=== PATIENT | male | born 1950 | race Caucasian/White ===

== ENCOUNTER 2024-05-25 10:57 | Emergency (ER) | payer OTHER ==
[2024-05-25] MEDS ORDERED: MORPHINE 4 MG/ML SYR ONE (12:45)
[2024-05-25] MEDS ORDERED: ONDANSETRON 4 MG/2 ML VIAL ONE (12:45)
[2024-05-25] MEDS ORDERED: DIPHENHYDRAMINE 50 MG/ML VIAL ONE (13:10)
[2024-05-25] MEDS ORDERED: METHYLPREDNISOLONE 40 MG INJ ONE (13:11)
--- NOTE | 2024-05-25 13:14 | RAD REPORT ---
EXAM DESCRIPTION: CT - CTHCSPWOC - 05/25/2024 12:58 pm CLINICAL HISTORY: TRAUMA COMPARISON: Thoracic Spine W/o Cont dated 05/25/2024 TECHNIQUE: Axial thin cut noncontrast CT images of the head were obtained. Axial thin cut noncontrast CT images of the cervical spine were obtained. Multiplanar reformatted images were generated and reviewed. All CT scans are performed using dose optimization technique as appropriate and may include automated exposure control or mA/KV adjustment according to patient size. FINDINGS: CT HEAD WITHOUT CONTRAST: No acute hemorrhage, hydrocephalus or extra-axial collection is identified.No areas of brain edema or midline shift. The paranasal sinuses and mastoids are clear.The calvarium is intact. CT CERVICAL SPINE WITHOUT CONTRAST: No fracture or subluxation.No prevertebral soft tissues swelling is identified. Up to moderate neural foraminal narrowing at C3-4, C4-5, and C5-6, secondary to uncovertebral joint and facet spurring. IMPRESSION: No acute traumatic intracranial or cervical spine findings. Degenerative cervical spine changes.
--- NOTE | 2024-05-25 13:21 | RAD REPORT ---
EXAM DESCRIPTION: CT - Thoracic Spine W/o Cont - 05/25/2024 12:59 pm CLINICAL HISTORY: PAIN COMPARISON: No comparisons TECHNIQUE: Axial noncontrast CT imaging of the thoracic spine was performed with coronal and sagitta l re-formatted images. All CT scans are performed using dose optimization technique as appropriate and may include automated exposure control or mA/KV adjustment according to patient size. FINDINGS: No acute thoracic spine fracture seen. No aggressive marrow pattern or malalignment. Paraspinal tissues are normal in thickness. No paraspinal abscess or hematoma seen. Intervertebral disc disease assessment is inherently limited by CT. Within these limitations, no high -grade canal or foraminal stenosis suspected. Sequelae of median sternotomy with mitral valve prosthesis present. The included lungs demonstrate bibasilar interstitial prominence, and small layering left pleural eff usion. Scattered small pulmonary nodules, largest measuring 5 mm in the anterior right upper lobe. IMPRESSION: No acute thoracic spine abnormality. Bibasilar interstitial prominence,, could reflect interstitial pneumonitis or mild edema. Small left layering pleural effusion. Consider MRI follow-up for assessment of disc disease if clinically desired.
--- NOTE | 2024-05-25 13:29 | RAD REPORT ---
EXAM DESCRIPTION: CT - Spine Lumbar Wo Con - 05/25/2024 12:58 pm CLINICAL HISTORY: PAIN COMPARISON: No comparisons TECHNIQUE: Axial noncontrast CT imaging of the lumbar spine was performed with coronal and sagittal re-formatted images. All CT scans are performed using dose optimization technique as appropriate and may include automated exposure control or mA/KV adjustment according to patient size. FINDINGS: No acute lumbar spine fracture seen. No aggressive marrow pattern or malalignment. Paraspinal tissues are normal in thickness. No paraspinal abscess or hematoma seen. Intervertebral disc disease assessment is inherently limited by CT. Within these limitations, no high -grade canal stenosis suspected. Multilevel degenerative changes of the facets and endplates, with m ild disc height loss at L5-S1 with areas of annular mineralization. Circumferential disc bulge at L4- 5 as well. Findings contribute to mild to moderate degrees of neural foraminal narrowing at the lower lumbar levels, most pronounced at L5-S1 bilaterally. IMPRESSION: No acute osseus abnormality of the lumbar spine. Degenerative changes as above.
--- NOTE | 2024-05-25 14:04 | EDPHYS ---
Physician Documentation [facility] Name: Edward Odom Age: 74 yrs Sex: Male : 1950 Arrival Date: 05/25/2024 Time: 10:57 Bed 17 Private MD: ED Physician Marisol Peace HPI: 05/25 14:04 This 74 yrs old Male presents to ER via Ambulatory with complaints of Fall gb1 Injury, Head Injury-Adult, Eye Pain. 14:04 Patient was in a car dealership shopping and he fell and tripped over a rug. He fell gb1 forward and hit his right side of his forehead. He has back pain up and down his spine. He denies any LOC as the consciousness and is not on any blood thinning medications. He walked home and sat at home for an hour prior to coming emergency department and then walked into the emergency department to be seen. He walk without assistance. He was accompanied by his family here.. Historical: - Allergies: 11:25 No Known Allergies; tm6 - PMHx: 11:25 Vertigo; Gastric reflux; tm6 - PSHx: 11:25 cataract surgery; aortic valve replacement; tm6 - Immunization history:: Client reports having NOT received the Covid vaccine. - Infectious Disease History:: Denies. - Immunization history: Last tetanus immunization: unknown. - Social history:: Smoking status: Patient denies any tobacco usage or history of. Patient/guardian denies using alcohol. Exam: 14:04 Constitutional: This is a well developed, well nourished patient who is awake, alert, gb1 and in no acute distress. Head/Face: Normocephalic, atraumatic. Neck: Trachea midline, no thyromegaly or masses palpated, and no cervical lymphadenopathy. Supple, full range of motion without nuchal rigidity, or vertebral point tenderness. No Meningismus. Chest/axilla: Normal chest wall appearance and motion. Nontender with no deformity. No lesions are appreciated. Cardiovascular: Regular rate and rhythm with a normal S1 and S2. No gallops, murmurs, or rubs. Normal PMI, no JVD. No pulse deficits. Respiratory: Lungs have equal breath sounds bilaterally, clear to auscultation and percussion. No rales, rhonchi or wheezes noted. No increased work of breathing, no retractions or nasal flaring. Abdomen/GI: Soft, non-tender, with normal bowel sounds. No distension or tympany. No guarding or rebound. No evidence of tenderness throughout. Back: Patient has paraspinal muscle tenderness up and down the cervical thoracic and lumbar region. No midline tenderness and no step-offs on exam. No signs of radiculopathy.. No costovertebral tenderness. Full range of motion. Skin: Warm, dry with normal turgor. Normal color with no rashes, no lesions, and no evidence of cellulitis. MS/ Extremity: Pulses equal, no cyanosis. Neurovascular intact. Full, normal range of motion. Vital Signs: 11:15 BP 142 / 69; Pulse 43; Resp 16; Pulse Ox 100% on R/A; db 11:23 BP 153 / 118; Pulse 53; Resp 20; Temp 97.8(O); Pulse Ox 100% on R/A; Weight 87.09 kg; tm6 Height 5 ft. 11 in. ; Pain 10/10; 14:00 BP 134 / 62; Pulse 46; Resp 18; Pulse Ox 100% ; db 11:23 Body Mass Index 26.78 (87.09 kg, 180.34 cm) tm6 11:23 Pain Scale: Adult tm6 [place] Coma Score: 13:40 Eye Response: spontaneous(4). Motor Response: obeys commands(6). Verbal Response: db oriented(5). Total: 15. Trauma Score (Adult): 13:40 Eye Response: spontaneous(1); Verbal Response: oriented(1); Motor Response: obeys db commands(2); Systolic BP: > 89 mm Hg(4); Respiratory Rate: 10 to 29 per min(4); [place] Score: 15; Trauma Score: 12 MDM: 11:17 Patient medically screened. gb1 14:04 Data reviewed: vital signs, nurses notes. ED course: 74-year-old male status post gb1 ground-level fall here with the mild forehead on the right side contusion. CTs of the head C-spine, thoracic and lumbar spine are all normal. No signs of compression fracture or rib fracture. Recommend NSAIDs for pain control and routine outpatient follow-up with the patient's primary care doctor.. 05/25 12:41 Order name: CT Head C Spine; Complete Time: 14:02 1 05/25 12:41 Order name: CT Lumbar Spine Wo Con; Complete Time: 14:02 gb1 05/25 12:41 Order name: CT Thoracic Spine Wo Cont; Complete Time: 14:02 [facility] Administered Medications: 12:51 Drug: morphine IVP or IV 4 mg IVP once over 4 mins {Note: RASS 0, pain 10/10.} Route: ll1 IVP; Infused Over: 4 mins; Site: right forearm; 13:20 Follow up: Response: No adverse reaction db 12:51 Drug: Ondansetron IVP 4 mg IVP once; over 2 minutes Route: IVP; Site: right forearm; ll1 13:20 Follow up: Response: No adverse reaction db Disposition Summary: 05/25/24 14:03 Discharge Ordered Notes: Location: Home gb1 Problem: new gb1 Symptoms: have improved gb1 Condition: Stable gb1 Diagnosis - Strain of muscle, fascia and tendon of lower back gb1 - Fall due to bumping against object gb1 Followup: gb1 - With: Private Physician - When: - Reason: Recheck today's complaints Discharge Instructions: - Discharge Summary Sheet gb1 - Lumbosacral Strain gb1 Forms: - Medication Reconciliation Form gb1 - Antibiotic Education gb1 - Prescription Opioid Use gb1 - Patient Portal Instructions gb1 - Leadership Thank You Letter gb1 Signatures: Dispatcher [employer] EDSue Abebe RN RN ll1 Rupal Gallagher RN RN db Marisol Peace MD MD gb1 Victorino Landers RN RN tm6 Corrections: (The following items were deleted from the chart) 12:42 12:42 Head C Spine MPR Wo Con+CT.RAD.BRZ ordered. EDMS EDMS 12:42 12:42 Spine Lumbar Wo Con+CT.RAD.BRZ ordered. EDMS EDMS 12:42 12:42 Thoracic Spine WO Cont+CT.RAD.BRZ ordered. EDMS EDMS 12:58 12:42 Head Brain Wo Cont+CT.RAD.BRZ ordered. EDMS EDMS
--- NOTE | 2024-05-25 14:04 | ER ---
Nurse's Notes [facility] Name: Edward Odom Age: 74 yrs Sex: Male : 1950 Arrival Date: 05/25/2024 Time: 10:57 Bed 17 Private MD: Diagnosis: Strain of muscle, fascia and tendon of lower back;Fall due to bumping against object Presentation: 05/25 11:23 Chief complaint: Patient states: tripped over a rug, body hit the concrete and head hit tm6 a door. Having pain on right forehead through right eye and neck, as well as left shoulder pain to lower back. Coronavirus screen: Vaccine status: Patient reports being unvaccinated. Ebola Screen: Patient negative for fever greater than or equal to 101.5 degrees Fahrenheit, and additional compatible Ebola Virus Disease symptoms Patient denies exposure to infectious person. Patient denies travel to an Ebola-affected area in the 21 days before illness onset. No symptoms or risks identified at this time. Initial Sepsis Screen: Does the patient meet any 2 criteria? No. Patient's initial sepsis screen is negative. Does the patient have a suspected source of infection? No. Patient's initial sepsis screen is negative. Risk Assessment: Do you want to hurt yourself or someone else? Patient reports no desire to harm self or others. Onset of symptoms was May 25, 2024. 11:23 Method Of Arrival: Ambulatory tm6 11:23 Acuity: TANI 3 tm6 13:40 Care prior to arrival: None. Mechanism of Injury: Fall from standing position. Trauma db event details: Injury occurred in the [facility]. Triage Assessment: 11:25 General: Appears distressed, uncomfortable, Behavior is cooperative. Pain: Complains of tm6 pain in forehead, right eye, right cheek, back, posterior aspect of right shoulder and neck Pain currently is 10 out of 10 on a pain scale. EENT: Reports pain in right eye. Neuro: Level of Consciousness is awake, alert, obeys commands, Oriented to person, place, time, situation. Cardiovascular: Patient's skin is warm and dry. Respiratory: Airway is patent Respiratory effort is even, Respiratory pattern is regular. GI: No signs and/or symptoms were reported involving the gastrointestinal system. Abdomen is flat, non-distended. : No signs and/or symptoms were reported regarding the genitourinary system. Derm: Wound noted forehead Wound is abrasion to forehead. Musculoskeletal: Reports pain in face, back and posterior aspect of right shoulder. Trauma Activation: Not Applicable Physician: ED Physician; Name: ; Notified At: ; Arrived At: Physician: General Surgeon; Name: ; Notified At: ; Arrived At: Physician: Radiology; Name: ; Notified At: ; Arrived At: Physician: Respiratory; Name: ; Notified At: ; Arrived At: Physician: Lab; Name: ; Notified At: ; Arrived At: Historical: - Allergies: 11:25 No Known Allergies; tm6 - PMHx: 11:25 Vertigo; Gastric reflux; tm6 - PSHx: 11:25 cataract surgery; aortic valve replacement; tm6 - Immunization history:: Client reports having NOT received the Covid vaccine. - Infectious Disease History:: Denies. - Immunization history: Last tetanus immunization: unknown. - Social history:: Smoking status: Patient denies any tobacco usage or history of. Patient/guardian denies using alcohol. Screenin:56 [facility] ED Fall Risk Assessment (Adult) History of falling in the last 3 months, db including since admission Yes- single mechanical fall (1 pt) Confusion or Disorientation No (0 pts) Intoxicated or Sedated No (0 pts) Impaired Gait No (0 pts) Mobility Assist Device Used No (0 pt) Altered Elimination No (0 pt) Score/Fall Risk Level 0 - 2 = Low Risk Oriented to surroundings, Maintained a safe environment. Abuse screen: Denies threats or abuse. Denies injuries from another. Nutritional screening: No deficits noted. Tuberculosis screening: No symptoms or risk factors identified. Primary Survey: 13:39 NO uncontrolled hemorrhage observed. A: The client is awake and alert. The airway is db patent. The client is alert. Airway: patent. Breathing/Chest: Spontaneous respiratory effort, equal unlabored respirations, breath sounds clear bilaterally, regular pattern, symmetrical chest rise and fall. Respiratory effort: spontaneous, unlabored. Circulation: No external hemorrhage present. Regular and strong central pulse, skin warm/dry/normal color. Disability Client is alert. Exposure/Environment: All clothing and personal items were removed. Forensic evidence collection is not deemed to be indicated at this time. Items placed in patient belonging bag. Reassessment Alertness and Airway: Awake and alert. The airway is patent. Breathing: Spontaneous respiratory effort, equal unlabored respirations, breath sounds clear bilaterally, regular pattern with symmetrical chest rise and fall. Circulation: No external hemorrhage noted. Regular and strong central pulse, skin warm/dry/normal color. Disability: Alert. Assessment: 11:43 Reassessment: Patient appears in no apparent distress at this time. Patient and/or db family updated on plan of care and expected duration. Pain level reassessed. Patient is alert, oriented x 3, equal unlabored respirations, skin warm/dry/pink. General: Appears in no apparent distress. comfortable, Behavior is calm, cooperative. Neuro: Level of Consciousness is awake, alert, obeys commands, Oriented to person, place, time, situation. Respiratory: Airway is patent Respiratory effort is even, unlabored, Respiratory pattern is regular, symmetrical. 13:16 Reassessment: PT REPORTED WHEN LYING FLAT HAD DIFFICULTY SWALLOWING. FAMILY GIVING PT db WATER. WHEN SAT PATIENT UP. PATIENT HAS NO DIFFICULTY SWALLOWING AND HAS CLEAR VOICE. NOTIFIED. DR. PEACE. PT REPOSITIONED SITTING UP. 13:39 Reassessment: Patient appears in no apparent distress at this time. Patient and/or db family updated on plan of care and expected duration. Pain level reassessed. Patient is alert, oriented x 3, equal unlabored respirations, skin warm/dry/pink. Patient states feeling better. 14:28 Reassessment: Patient appears in no apparent distress at this time. Patient and/or db family updated on plan of care and expected duration. Pain level reassessed. Patient is alert, oriented x 3, equal unlabored respirations, skin warm/dry/pink. Patient states feeling better. Patient states symptoms have improved. Vital Signs: 11:15 BP 142 / 69; Pulse 43; Resp 16; Pulse Ox 100% on R/A; db 11:23 BP 153 / 118; Pulse 53; Resp 20; Temp 97.8(O); Pulse Ox 100% on R/A; Weight 87.09 kg; tm6 Height 5 ft. 11 in. ; Pain 10/10; 14:00 BP 134 / 62; Pulse 46; Resp 18; Pulse Ox 100% ; db 11:23 Body Mass Index 26.78 (87.09 kg, 180.34 cm) tm 11:23 Pain Scale: Adult tm6 [place] Coma Score: 13:40 Eye Response: spontaneous(4). Motor Response: obeys commands(6). Verbal Response: db oriented(5). Total: 15. Trauma Score (Adult): 13:40 Eye Response: spontaneous(1); Verbal Response: oriented(1); Motor Response: obeys db commands(2); Systolic BP: > 89 mm Hg(4); Respiratory Rate: 10 to 29 per min(4); [place] Score: 15; Trauma Score: 12 ED Course: 10:59 Patient arrived in ED. mr 11:16 Stone Sloan, RN is Primary Nurse. rs5 11:17 Marisol Peace MD is Attending Physician. gb1 11:25 Triage completed. tm6 11:25 Arm band placed on right wrist. tm6 12:49 Inserted saline lock: 20 gauge in right forearm, using aseptic technique. Flushed with zm 10 mL NS. 13:00 CT Head C Spine In Process Unspecified. EDMS 13:00 CT Lumbar Spine Wo Con In Process Unspecified. EDMS 13:00 CT Thoracic Spine Wo Cont In Process Unspecified. EDMS 13:40 Patient has correct armband on for positive identification. Bed in low position. Call db light in reach. Side rails up X2. Pulse ox on. NIBP on. 13:40 Family accompanied patient. db 14:28 Provided Education on: DISCHARGE. db 14:28 No provider procedures requiring assistance completed. IV discontinued, intact, db bleeding controlled, No redness/swelling at site. Administered Medications: 12:51 Drug: morphine IVP or IV 4 mg IVP once over 4 mins {Note: RASS 0, pain 10/10.} Route: ll1 IVP; Infused Over: 4 mins; Site: right forearm; 13:20 Follow up: Response: No adverse reaction db 12:51 Drug: Ondansetron IVP 4 mg IVP once; over 2 minutes Route: IVP; Site: right forearm; ll1 13:20 Follow up: Response: No adverse reaction db Medication: 14:28 VIS not applicable for this client. db Intake: 14:00 PO: 0ml; Total: 0ml. db Outcome: 14:03 Discharge ordered by . gb1 14:28 Discharged to home via wheelchair, with family, db 14:28 Condition: stable 14:28 Discharge instructions given to patient, family, Instructed on discharge instructions, follow up and referral plans. 14:29 Patient's length of stay was not longer than 2 hours. 14:29 Patient left the ED. ll1 Signatures: Dispatcher [employer] EDNV BuckCaprice, Del Reg mr ClintonSue, RN RN ll1 Rosalba Cyr Danielle RN RN db Stone Sloan RN RN rs5 Marisol Peace MD MD gb1 Victorino Landers RN RN tm6
[2024-05-25 14:34] VITALS: O2SAT 100
[2024-05-25 14:36] VITALS: TEMP 97.8
[2024-05-25 14:37] VITALS: BP 134/62
--- OUTSIDE RECORDS SUMMARY | 2024-05-26 13:54 | XMS REPORT | Continuity of Care Document ---
Author Name Unknown Address [address] [place] [address] [facility] Address [address] [place] [address] Care Team Providers Care Professor Of Medicine Name Role Phone [facility] Primary Car e Physician OSMEL LUNA Attending Clinician UnavailOsmel Luque MD Attending Clinician [phone] JAVED OSBORN Attending Clinician UnavailJaved Owens MD Attending Clinician [phone] Gunjan Sanchez MD Attending Clinician [phone] GUNJAN SANCHEZ Attending Clinician Unavailable Alexandrea Conte RN Attending Clinician Unavailable Ariela Mcleod Attending Clinician [phone] Ariela MOJICA Attending Clinician Unavailable OSMEL LUNA Admitting Clinician UnavailOsmel Luque MD Admitting Clinician [phone] GUNJAN SANCHEZ Admitting Clinician Unavailable Gunjan Sanchez MD Admitting Clinician [phone] Payers Payer Name Policy Type Policy Number Effective Date Expirati on Date Source MEDICARE PART A \T\ [id number] 2016 00:00:00 [employer] S[employer]IOR [employer]PP[employer]MENT [id number] 2020 00:00:00 Problems Condition Name Condition Details Condition Category Status Onset Date Resolution Date Last Treatment Date Treating Clinician Comments Source Nondisplac ed fracture of second metatarsal bone, left foot, initial encounter for open fracture Nondisplac ed fracture of second metatarsal bone, left foot, initial encounter for open fracture Disease Active 20205-30 00:00: 00 [facility] Allergies, Adverse Reactions, Alerts Allergy Name Allergy Type Status Severity Reaction(s) Onset Date Inactive Date Treating Clinician Comments Source LISINOPR [place] DRUG INGREDI Active COUGH 02-15 00:00: 00 [facility] Lisinopr il Propensi ty to adverse reaction s Active Cough 02-15 00:00: 00 [facility] NO KNOWN ALLERGIE S Drug Class Active [facility] Social History Social Habit Start Date Stop Date Quantity Comments Source [facility] Tobacco use and exposure 2024-04-01 00:00:00 2024-04-01 00:00:00 Smokeless tobacco non-user [facility] Exposure to SARS-CoV-2 (event) 2022-06-17 00:00:00 2022-06-27 12:14:00 Not sure [facility] History of Social function 2022-06-14 00:00:00 2022-06-14 00:00:00 [facility] Sex assigned at 1950 00:00:00 1950 00:00:00 [facility] Smoking Status Start Date Stop Date Source Never smoked tobacco [facility] Tobacco smoking consumption unknown [facility] Medications Ordered Medication Name Filled Medication Name Start Date Stop Date Current Medication? Ordering Clinician Indication Dosage Frequency Signature (SIG) Comments Components Source sodium chloride (NS) injection 05-06 17:14: 00 05-06 17:24 :27 No PRN, Starting on Sat05/06/24 at 1214, Until Sat05/06/24 at 1224, Routine, Intra-op [facility] neomycin-po lymyxin-dex amethasone (MAXITROL) 3.5 mg/g-10,000 unit/g-0.1 % ophthalmic ointment 05-06 17:14: 00 05-06 17:24 :27 No PRN, Starting on Sat05/06/24 at 1214, Until Sat05/06/24 at 1224, Routine, Intra-op [facility] dexamethaso ne (DECADRON PHOSPHATE) injection 05-06 17:14: 00 05-06 17:24 :27 No PRN, Starting on Sat05/06/24 at 1214, Until Sat05/06/24 at 1224, Routine, Intra-op [facility] ceFAZolin (ANCEF) injection 05-06 17:14: 00 05-06 17:24 :27 No PRN, Starting on Sat05/06/24 at 1214, Until Sat05/06/24 at 1224, BLESSING, Intra-op [facility] carbachoL (MIOSTAT) 0.01 % intraocular injection 05-06 17:13: 00 05-06 17:24 :27 No PRN, Starting on Sat05/06/24 at 1213, Until Sat05/06/24 at 1224, Routine, Intra-op [facility] chondroitin sulf-sod hyaluronate (DUOVISC VISCO ELASTIC) intraocular injection 05-06 17:04: 00 05-06 17:24 :27 No PRN, Starting on Sat05/06/24 at 1204, Until Sat05/06/24 at 1224, Routine, Intra-op [facility] EPINEPHrine (PF) 1:1,000 (1 mg/mL) (ADRENALIN (PF)) 0.5 mL in balanced salt soln no.1 irrig. (BSS PLUS) 500 mL OR irrigation 05-06 17:03: 00 05-06 17:24 :27 No PRN, Starting on Sat05/06/24 at 1203, Intra-op [facility] water for irrigation irrigation solution 05-06 16:56: 00 05-06 17:24 :27 No PRN, Starting on Sat05/06/24 at 1156, Until Sat05/06/24 at 1224, Routine, Intra-op [facility] Hyaluronida se, Human Recomb. (HYLENEX) injection 05-06 16:52: 00 05-06 17:24 :27 No PRN, Starting on Sat05/06/24 at 1152, Until Sat05/06/24 at 1224, Routine, Intra-op [facility] eye block syringe 11 mL 05-06 16:52: 00 05-06 17:24 :26 No PRN, Starting on Sat05/06/24 at 1152, Until Sat05/06/24 at 1224, Intra-op [facility] cyclopent 1%-tropic 1%-phenyl 2.5%-ketor 0.5% (MYDRIATIC #5) ophthalmic solution syringe 0.5 mL 05-06 15:45: 00 05-06 15:46 :00 No .5mL 0.5 mL, Left Eye, ONCE, 1 dose, On Sat05/06/24 at 1045, Routine, DSU Pre-op [facility] lactated ringers IV infusion 1,000 mL 05-06 15:45: 00 05-06 15:48 :00 No 1000mL at 42 mL/hr, 1,000 mL, IV Infusion, ONCE, 1 dose, On Sat05/06/24 at 1045, Routine, DSU Pre-op [facility] neomycin-po lymyxin-dex amethasone (MAXITROL) 3.5 mg/g-10,000 unit/g-0.1 % ophthalmic ointment 04-22 17:41: 00 04-22 17:52 :23 No PRN, Starting on Sat04/22/24 at 1241, Until Sat04/22/24 at 1252, Routine, Intra-op [facility] dexamethaso ne (DECADRON PHOSPHATE) injection 04-22 17:41: 00 04-22 17:52 :23 No PRN, Starting on Sat04/22/24 at 1241, Until Sat04/22/24 at 1252, Routine, Intra-op [facility] ceFAZolin (ANCEF) injection 04-22 17:41: 00 04-22 17:52 :23 No PRN, Starting on Sat04/22/24 at 1241, Until Sat04/22/24 at 1252, BLESSING, Intra-op [facility] carbachoL (MIOSTAT) 0.01 % intraocular injection 04-22 17:40: 00 04-22 17:52 :23 No PRN, Starting on Sat04/22/24 at 1240, Until Sat04/22/24 at 1252, Routine, Intra-op [facility] chondroitin sulf-sod hyaluronate (DUOVISC VISCO ELASTIC) intraocular injection 04-22 17:31: 00 04-22 17:52 :23 No PRN, Starting on Sat04/22/24 at 1231, Until Sat04/22/24 at 1252, Routine, Intra-op [facility] Hyaluronida se, Human Recomb. (HYLENEX) injection 04-22 17:19: 00 04-22 17:52 :23 No PRN, Starting on Sat04/22/24 at 1219, Until Sat04/22/24 at 1252, Routine, Intra-op [facility] eye block syringe 11 mL 04-22 17:18: 00 04-22 17:52 :23 No PRN, Starting on Sat04/22/24 at 1218, Until Sat04/22/24 at 1252, Intra-op [facility] EPINEPHrine 1:1,000 (1 mg/mL) (ADRENALIN) injection 04-22 17:18: 00 04-22 17:52 :23 No PRN, Starting on Sat04/22/24 at 1218, Until Sat04/22/24 at 1252, Routine, Intra-op [facility] balanced salt irrig soln comb1 (BSS PLUS) ophthalmic solution 500 mL bag 04-22 17:17: 00 04-22 17:52 :23 No PRN, Starting on Sat04/22/24 at 1217, Until Sat04/22/24 at 1252, Routine, Intra-op [facility] water for irrigation irrigation solution 04-22 17:17: 00 04-22 17:52 :23 No PRN, Starting on Sat04/22/24 at 1217, Until Sat04/22/24 at 1252, Routine, Intra-op [facility] sodium chloride (NS) injection 04-22 17:17: 00 04-22 17:52 :23 No PRN, Starting on Sat04/22/24 at 1217, Until Sat04/22/24 at 1252, Routine, Intra-op [facility] cyclopent 1%-tropic 1%-phenyl 2.5%-ketor 0.5% (MYDRIATIC #5) ophthalmic solution syringe 0.5 mL 04-22 15:45: 00 04-22 15:48 :00 No .5mL 0.5 mL, Right Eye, ONCE, 1 dose, On Sat04/22/24 at 1045, Routine, DSU Pre-op [facility] lactated ringers IV infusion 1,000 mL 04-22 15:45: 00 04-22 15:48 :00 No 1000mL at 42 mL/hr, 1,000 mL, IV Infusion, ONCE, 1 dose, On Sat04/22/24 at 1045, Routine, DSU Pre-op [facility] aspirin 81 mg EC tablet 04-22 13:44: 17 Yes 81mg Take 1 tablet by mouth in the morning. [facility] omeprazole 40 mg capsule 04-22 13:44: 17 Yes 40mg Take 1 capsule by mouth in the morning and 1 capsule in the evening. [facility] clindamycin 150 mg capsule 08 00:00: 00 Yes Take 2 capsule by mouth 4 (four) times daily for 10 days. [facility] gabapentin 300 mg capsule 05-31 00:00: 00 Yes [id number] 300mg Take 1 capsule by mouth in the morning and 1 capsule at noon and 1 capsule in the evening. [facility] HYDROcodone -acetaminop hen 5-325 mg tablet 05-31 00:00: 00 Yes [id number] 1{tbl} Take 1 tablet by mouth every 6 (six) hours as needed for Pain (scale 7-10). Indication s: acute pain [facility] traMADoL 50 mg tablet 05-31 00:00: 00 Yes [id number] 50mg Take 1 tablet by mouth every 6 (six) hours as needed for Pain (scale 4-6). Indication s: acute pain [facility] clindamycin 150 mg capsule 05-31 00:00: 00 Yes [id number] 300mg Take 2 capsules by mouth 4 (four) times daily. [facility] Immunizations Ordered Immunization Name Filled Immunization Name Date Status Comments Source Td 2022-05-30 00:00:00 Completed [facility] Td 2022-05-30 00:00:00 Completed [facility] Td 2022-05-30 00:00:00 Completed [facility] Td 2022-05-30 00:00:00 Completed [facility] Td 2022-05-30 00:00:00 Completed [facility] Td 2022-05-30 00:00:00 Completed [facility] TD, NOS Unknown Completed [facility] TD, NOS Unknown Completed [facility] TD, NOS Unknown Completed [facility] TD, NOS Unknown Completed [facility] Vital Signs Vital Name Observation Time Observation Value Comments S ource Systolic blood pressure 2024-05-06 15:43:00 145 mm[Hg] [facility] Diastolic blood pressure 2024-05-06 15:43:00 65 mm[Hg] [facility] Heart rate 2024-05-06 15:43:00 45 /min [facility] Body temperature 2024-05-06 15:43:00 36.44 Kayla [facility] Respiratory rate 2024-05-06 15:43:00 12 /min [facility] Oxygen saturation in Arterial blood by Pulse oximetry 2024-05-06 15:43:00 99 /min [facility] Body weight 2024-04-29 19:00:00 87.091 kg [facility] BMI 2024-04-29 19:00:00 26.78 kg/m2 [facility] Heart rate 2024-05-06 17:40:00 49 /min [facility] Oxygen saturation in Arterial blood by Pulse oximetry 2024-05-06 17:40:00 98 /min [facility] Systolic blood pressure 2024-05-06 17:35:00 129 mm[Hg] [facility] Diastolic blood pressure 2024-05-06 17:35:00 65 mm[Hg] [facility] Respiratory rate 2024-05-06 17:35:00 20 /min [facility] Body temperature 2024-05-06 15:43:00 36.44 Kayla [facility] Body weight 2024-04-29 19:00:00 87.091 kg [facility] BMI 2024-04-29 19:00:00 26.78 kg/m2 [facility] Systolic blood pressure 2024-04-22 18:10:00 130 mm[Hg] [facility] Diastolic blood pressure 2024-04-22 18:10:00 64 mm[Hg] [facility] Heart rate 2024-04-22 18:10:00 45 /min Unive [facility] Respiratory rate 2024-04-22 18:10:00 18 /min [facility] Oxygen saturation in Arterial blood by Pulse oximetry 2024-04-22 18:10:00 95 /min [facility] Body temperature 2024-04-22 17:50:00 36.39 Kayla [facility] Body height 2024-04-22 15:38:00 180.3 cm [facility] Body weight 2024-04-22 15:38:00 86.183 kg [facility] BMI 2024-04-22 15:38:00 26.50 kg/m2 [facility] Systolic blood pressure 2024-04-22 15:46:00 154 mm[Hg] [facility] Diastolic blood pressure 2024-04-22 15:46:00 72 mm[Hg] [facility] Heart rate 2024-04-22 15:46:00 53 /min Unive [facility] Body temperature 2024-04-22 15:46:00 36.33 Kayla [facility] Respiratory rate 2024-04-22 15:46:00 17 /min [facility] Oxygen saturation in Arterial blood by Pulse oximetry 2024-04-22 15:46:00 93 /min [facility] Body height 2024-04-22 15:38:00 180.3 cm [facility] Body weight 2024-04-22 15:38:00 86.183 kg [facility] BMI 2024-04-22 15:38:00 26.50 kg/m2 [facility] Systolic blood pressure 2022-06-27 18:18:00 172 mm[Hg] [facility] Diastolic blood pressure 2022-06-27 18:18:00 54 mm[Hg] [facility] Heart rate 2022-06-27 18:18:00 52 /min [facility] Oxygen saturation in Arterial blood by Pulse oximetry 2022-06-27 18:18:00 100 /min [facility] Body weight 2022-06-27 18:17:00 82.736 kg [facility] BMI 2022-06-27 18:17:00 25.44 kg/m2 [facility] Systolic blood pressure 2022-06-14 14:04:00 175 mm[Hg] [facility] Diastolic blood pressure 2022-06-14 14:04:00 57 mm[Hg] [facility] Heart rate 2022-06-14 14:04:00 67 /min [facility] Oxygen saturation in Arterial blood by Pulse oximetry 2022-06-14 14:04:00 98 /min [facility] Body weight 2022-06-14 13:56:00 81.647 kg [facility] BMI 2022-06-14 13:56:00 25.10 kg/m2 [facility] Procedures Procedure Date / Time Performed Performing Clinicia n Source [address] - [place] XCAPSL CTRC RMVL INSJ IO LENS PROSTH W/O ECP 2024-05-06 16:39:00 Osmel Luna [facility] [address] - [place] XCAPSL CTRC RMVL INSJ IO LENS PROSTH W/O ECP 2024-04-22 17:09:00 Osmel Luna [facility] Encounters Start Date/Time End Date/Time Encounter Type Admission Type Attending [facility] Care Department Encounter ID Source 2024-05-06 10:34:00 2024-05-06 12:50:00 Outpatient R OSMEL LUNA [facility] OPH [id number] [facility] 2024-05-06 11:17:00 2024-05-06 11:50:00 Surgery FitoOsmel [facility] 1.2.840.114 350.1.13.10 4.2.7.2.686 [id number] [facility] 2024-05-06 10:34:00 2024-05-06 10:34:00 Hospital Encounter Osmel Luna [facility] 1.2.840.114 350.1.13.10 4.2.7.2.686 [id number] [facility] 2024-04-22 10:35:00 2024-04-22 13:19:00 Outpatient R OSMEL LUNA [facility] OPH [id number] [facility] 2024-04-22 10:35:00 2024-04-22 13:19:00 Hospital Encounter FitoOsmel [facility] 1.2.840.114 350.1.13.10 4.2.7.2.686 [id number] [facility] 2024-04-22 11:11:00 2024-04-22 11:44:00 Surgery FitoOsmel [facility] 1.2.840.114 350.1.13.10 4.2.7.2.686 [id number] [facility] 2022-06-27 13:19:46 2022-06-27 23:59:00 Outpatient JAVED FERNANDEZ [facility] [id number] [facility] 2022-06-27 13:15:00 2022-06-27 13:41:36 Office Visit Osborn, Javed [facility] 1.2.840.114 350.1.13.10 4.2.7.2.686 [id number] [facility] 2022-06-14 09:00:00 2022-06-14 09:49:38 Outpatient R JAVED OSBORN [facility] [id number] [facility] 2022-06-14 09:00:00 2022-06-14 09:49:38 Office Visit Javed Osborn [facility] 1..840.114 350.1.13.10 4.2.7.2.686 [id number] [facility] 2022-06-12 15:15:00 2022-06-12 15:30:00 Office Visit Gunjan Sanchez [facility] 1..840.114 350.1.13.10 4.2.7.2.686 [id number] [facility] 2022-06-12 15:15:00 2022-06-12 15:15:00 Outpatient R LEATHA GUNJAN [facility] [id number] [facility] 2022-06-12 15:15:00 2022-06-12 15:15:00 Outpatient R LEATHA GUNJAN [facility] [id number] [facility] 2022-06-01 00:00:00 2022-06-01 00:00:00 Transition of Care Alexandrea Conte 1.2.840.114 350.1.13.10 4.2.7.2.686 [id number] [facility] 2022-05-30 22:20:00 2022-05-31 16:30:00 Outpatient X GUNJAN SANCHEZ [facility] [id number] [facility] 2022-05-30 22:20:00 2022-05-31 16:30:00 Emergency SanchezGunjan roberts [facility] 1.2840.114 350.1.13.10 4.2.7.2.686 [id number] [facility] 2022-05-30 17:52:00 2022-05-30 22:18:00 Emergency Ariela Mojica [facility] 1.2.840.114 350.1.13.10 4.2.7.2.686 [id number] [facility] 2022-05-30 17:52:00 2022-05-30 22:18:00 Emergency X Ariela MOJICA [facility] ERT [id number] [facility] 2022-05-30 17:52:00 2022-05-30 22:18:00 Emergency X Ariela MOJICA [facility] ERT [id number] [facility] History and Physical Notes Date/Time Note Provider Source 2024-05-06 11:04:16 H&P Update H&P was reviewed and the patient was examined and there was no change in the patient's condition. [facility] 2024-04-22 11:28:19 H&P Update H&P was reviewed and the patient was examined and there was no change in the patient's condition. [facility] Notes Date/Time Note Provider Source 2024-04-29 14:49:23 Images from the original note were not included. Your procedure is at [facility] on 05/06/24. The address is [address] [place] [id number] [facility] nursing staff will call you the workday before your procedure to let you know what time to arrive.On the day of your procedure, please go inside that door and check in at the desk. Please note: You may not travel home alone and that includes in a taxi or by bus. We must speak to your Responsible Adult (who will be picking you up) the morning of your procedure, before the start of your procedure. This person must be an adult over the age of 18 years of age. Do not eat any solid food after midnight the night before surgery. You may have sips of clear liquids such as water, gatorade, and sprite up until two hours before your scheduled procedure. You may take your medications with a sip of water as directed by physician. Anticoagulants will be per physician guidance. Medication Note(s)/Instructions:will continue ASA per MD instruction. Pending screening, we may test for COVID. If a patient tests positive, their cases are cancelled and/or rescheduled. COVID SCREENING NOTE: Denies COVID symptoms, no testing required. Additional requests, questions, concerns:CB number and availability provided. Patient verbalized understanding of pre-op instructions and voiced no further questions at this time. [facility] 2024-04-01 11:18:27 Images from the original note were not included. Your procedure is at [facility] on 04/22/24. The address is [address] [place] [address], [address] [facility] nursing staff will call you the workday before your procedure to let you know what time to arrive.On the day of your procedure, please go inside that door and check in at the desk. Please note: You may not travel home alone and that includes in a taxi or by bus. We must speak to your Responsible Adult (who will be picking you up) the morning of your procedure, before the start of your procedure. This person must be an adult over the age of 18 years of age. Do not eat any solid food after midnight the night before surgery. You may have sips of clear liquids such as water, gatorade, and sprite up until two hours before your scheduled procedure. You may take your medications with a sip of water as directed by physician. Anticoagulants will be per physician guidance. Medication Note(s)/Instructions:Will continue ASA per MD instruction. Pending screening, we may test for COVID. If a patient tests positive, their cases are cancelled and/or rescheduled. COVID SCREENING NOTE: Denies COVID symptoms, no testing required. Additional requests, questions, concerns:CB nuber and availability provided. Patient verbalized understanding of pre-op instructions and voiced no further questions at this time. [facility]
== END 2024-05-25 14:29 | disposition home or self-care (01) ==
LOC: ER 10:57
DX: S39.012A Strain of muscle, fascia and tendon of lower back, initial encounter (principal); W01.198A Fall on same level from slipping, tripping and stumbling with subsequent striking against other object, initial encounter; S00.83XA Contusion of other part of head, initial encounter
CPT/HCPCS: 72131; 70450; 72125; 72128; J2405; J1200; J2919

== ENCOUNTER 2024-06-16 15:27 | Emergency (ER) | payer OTHER ==
--- OUTSIDE RECORDS SUMMARY | 2024-06-16 15:31 | XMS REPORT | Continuity of Care Document ---
Author Name Unknown Address [address] [facility] [address] [place] [address] [facility] Address [address] [facility] [address] [place] [address] Care Team Providers Care Cardroom Supervisor Name Role Phone [facility] Primary Car e Physician OSMEL LUNA Attending Clinician UnavailOsmel Luque MD Attending Clinician [phone] JAVED OSBORN Attending Clinician UnavailJaved Owens MD Attending Clinician [phone] Gunjan Sanchez MD Attending Clinician [phone] GUNJAN SANCHEZ Attending Clinician Unavailable Alexandrea Conte RN Attending Clinician Unavailable Ariela Mcleod Attending Clinician [phone] Ariela MOJICA Attending Clinician Unavailable OSMEL LUNA Admitting Clinician UnavailOsmel Luque MD Admitting Clinician [phone] GUNJAN SANCHEZ Admitting Clinician Unavailable Gunjan Sanchez MD Admitting Clinician [phone] Payers Payer Name Policy Type Policy Number Effective Date Expirati on Date Source MEDICARE PART A \T\ [id number] 2016 00:00:00 [employer] SENIOR SUPPLEMENT [id number] 2020 00:00:00 Problems Condition Name Condition Details Condition Category Status Onset Date Resolution Date Last Treatment Date Treating Clinician Comments Source Nondisplac ed fracture of second metatarsal bone, left foot, initial encounter for open fracture Nondisplac ed fracture of second metatarsal bone, left foot, initial encounter for open fracture Disease Active 20205-30 00:00: 00 [facility] Allergies, Adverse Reactions, Alerts Allergy Name Allergy Type Status Severity Reaction(s) Onset Date Inactive Date Treating Clinician Comments Source LISINOPR [place] DRUG INGREDI Active COUGH 02-15 00:00: 00 [facility] Lisinopr il Propensi ty to adverse reaction s Active Cough 02-15 00:00: 00 [facility] NO KNOWN ALLERGIE S Drug Class Active [facility] Social History Social Habit Start Date Stop Date Quantity Comments Source [facility] Tobacco use and exposure 2024-04-01 00:00:00 2024-04-01 00:00:00 Smokeless tobacco non-user [facility] Exposure to SARS-CoV-2 (event) 2022-06-17 00:00:00 2022-06-27 12:14:00 Not sure [facility] History of Social function 2022-06-14 00:00:00 2022-06-14 00:00:00 [facility] Sex assigned at 1950 00:00:00 1950 00:00:00 [facility] Smoking Status Start Date Stop Date Source Never smoked tobacco [facility] Tobacco smoking consumption unknown [facility] Medications Ordered Medication Name Filled Medication Name Start Date Stop Date Current Medication? Ordering Clinician Indication Dosage Frequency Signature (SIG) Comments Components Source sodium chloride (NS) injection 05-06 17:14: 00 05-06 17:24 :27 No PRN, Starting on Sat05/06/24 at 1214, Until Sat05/06/24 at 1224, Routine, Intra-op [facility] neomycin-po lymyxin-dex amethasone (MAXITROL) 3.5 mg/g-10,000 unit/g-0.1 % ophthalmic ointment 05-06 17:14: 00 05-06 17:24 :27 No PRN, Starting on Sat05/06/24 at 1214, Until Sat05/06/24 at 1224, Routine, Intra-op [facility] dexamethaso ne (DECADRON PHOSPHATE) injection 05-06 17:14: 00 05-06 17:24 :27 No PRN, Starting on Sat05/06/24 at 1214, Until Sat05/06/24 at 1224, Routine, Intra-op [facility] ceFAZolin (ANCEF) injection 05-06 17:14: 00 05-06 17:24 :27 No PRN, Starting on Sat05/06/24 at 1214, Until Sat05/06/24 at 1224, BLESSING, Intra-op [facility] carbachoL (MIOSTAT) 0.01 % intraocular injection 05-06 17:13: 00 05-06 17:24 :27 No PRN, Starting on Sat05/06/24 at 1213, Until Sat05/06/24 at 1224, Routine, Intra-op [facility] chondroitin sulf-sod hyaluronate (DUOVISC VISCO ELASTIC) intraocular injection 05-06 17:04: 00 05-06 17:24 :27 No PRN, Starting on Sat05/06/24 at 1204, Until Sat05/06/24 at 1224, Routine, Intra-op [facility] EPINEPHrine (PF) 1:1,000 (1 mg/mL) (ADRENALIN (PF)) 0.5 mL in balanced salt soln no.1 irrig. (BSS PLUS) 500 mL OR irrigation 05-06 17:03: 00 05-06 17:24 :27 No PRN, Starting on Sat05/06/24 at 1203, Intra-op [facility] water for irrigation irrigation solution 05-06 16:56: 00 05-06 17:24 :27 No PRN, Starting on Sat05/06/24 at 1156, Until Sat05/06/24 at 1224, Routine, Intra-op [facility] Hyaluronida se, Human Recomb. (HYLENEX) injection 05-06 16:52: 00 05-06 17:24 :27 No PRN, Starting on Sat05/06/24 at 1152, Until Sat05/06/24 at 1224, Routine, Intra-op [facility] eye block syringe 11 mL 05-06 16:52: 00 05-06 17:24 :26 No PRN, Starting on Sat05/06/24 at 1152, Until Sat05/06/24 at 1224, Intra-op [facility] cyclopent 1%-tropic 1%-phenyl 2.5%-ketor 0.5% (MYDRIATIC #5) ophthalmic solution syringe 0.5 mL 05-06 15:45: 00 05-06 15:46 :00 No .5mL 0.5 mL, Left Eye, ONCE, 1 dose, On Sat05/06/24 at 1045, Routine, DSU Pre-op [facility] lactated ringers IV infusion 1,000 mL 05-06 15:45: 00 05-06 15:48 :00 No 1000mL at 42 mL/hr, 1,000 mL, IV Infusion, ONCE, 1 dose, On Sat05/06/24 at 1045, Routine, DSU Pre-op [facility] neomycin-po lymyxin-dex amethasone (MAXITROL) 3.5 mg/g-10,000 unit/g-0.1 % ophthalmic ointment 04-22 17:41: 00 04-22 17:52 :23 No PRN, Starting on Sat04/22/24 at 1241, Until Sat04/22/24 at 1252, Routine, Intra-op [facility] dexamethaso ne (DECADRON PHOSPHATE) injection 04-22 17:41: 00 04-22 17:52 :23 No PRN, Starting on Sat04/22/24 at 1241, Until Sat04/22/24 at 1252, Routine, Intra-op [facility] ceFAZolin (ANCEF) injection 04-22 17:41: 00 04-22 17:52 :23 No PRN, Starting on Sat04/22/24 at 1241, Until Sat04/22/24 at 1252, BLESSING, Intra-op [facility] carbachoL (MIOSTAT) 0.01 % intraocular injection 04-22 17:40: 00 04-22 17:52 :23 No PRN, Starting on Sat04/22/24 at 1240, Until Sat04/22/24 at 1252, Routine, Intra-op [facility] chondroitin sulf-sod hyaluronate (DUOVISC VISCO ELASTIC) intraocular injection 04-22 17:31: 00 04-22 17:52 :23 No PRN, Starting on Sat04/22/24 at 1231, Until Sat04/22/24 at 1252, Routine, Intra-op [facility] Hyaluronida se, Human Recomb. (HYLENEX) injection 04-22 17:19: 00 04-22 17:52 :23 No PRN, Starting on Sat04/22/24 at 1219, Until Sat04/22/24 at 1252, Routine, Intra-op [facility] eye block syringe 11 mL 04-22 17:18: 00 04-22 17:52 :23 No PRN, Starting on Sat04/22/24 at 1218, Until Sat04/22/24 at 1252, Intra-op [facility] EPINEPHrine 1:1,000 (1 mg/mL) (ADRENALIN) injection 04-22 17:18: 00 04-22 17:52 :23 No PRN, Starting on Sat04/22/24 at 1218, Until Sat04/22/24 at 1252, Routine, Intra-op [facility] balanced salt irrig soln comb1 (BSS PLUS) ophthalmic solution 500 mL bag 04-22 17:17: 00 04-22 17:52 :23 No PRN, Starting on Sat04/22/24 at 1217, Until Sat04/22/24 at 1252, Routine, Intra-op [facility] water for irrigation irrigation solution 04-22 17:17: 00 04-22 17:52 :23 No PRN, Starting on Sat04/22/24 at 1217, Until Sat04/22/24 at 1252, Routine, Intra-op [facility] sodium chloride (NS) injection 04-22 17:17: 00 04-22 17:52 :23 No PRN, Starting on Sat04/22/24 at 1217, Until Sat04/22/24 at 1252, Routine, Intra-op [facility] cyclopent 1%-tropic 1%-phenyl 2.5%-ketor 0.5% (MYDRIATIC #5) ophthalmic solution syringe 0.5 mL 04-22 15:45: 00 04-22 15:48 :00 No .5mL 0.5 mL, Right Eye, ONCE, 1 dose, On Sat04/22/24 at 1045, Routine, DSU Pre-op [facility] lactated ringers IV infusion 1,000 mL 04-22 15:45: 00 04-22 15:48 :00 No 1000mL at 42 mL/hr, 1,000 mL, IV Infusion, ONCE, 1 dose, On Sat04/22/24 at 1045, Routine, DSU Pre-op [facility] aspirin 81 mg EC tablet 04-22 13:44: 17 Yes 81mg Take 1 tablet by mouth in the morning. [facility] omeprazole 40 mg capsule 04-22 13:44: 17 Yes 40mg Take 1 capsule by mouth in the morning and 1 capsule in the evening. [facility] clindamycin 150 mg capsule 08 00:00: 00 Yes Take 2 capsule by mouth 4 (four) times daily for 10 days. [facility] gabapentin 300 mg capsule 05-31 00:00: 00 Yes [id number] 300mg Take 1 capsule by mouth in the morning and 1 capsule at noon and 1 capsule in the evening. [facility] HYDROcodone -acetaminop hen 5-325 mg tablet 05-31 00:00: 00 Yes [id number] 1{tbl} Take 1 tablet by mouth every 6 (six) hours as needed for Pain (scale 7-10). Indication s: acute pain [facility] traMADoL 50 mg tablet 05-31 00:00: 00 Yes [id number] 50mg Take 1 tablet by mouth every 6 (six) hours as needed for Pain (scale 4-6). Indication s: acute pain [facility] clindamycin 150 mg capsule 05-31 00:00: 00 Yes [id number] 300mg Take 2 capsules by mouth 4 (four) times daily. [facility] Immunizations Ordered Immunization Name Filled Immunization Name Date Status Comments Source Td 2022-05-30 00:00:00 Completed [facility] Td 2022-05-30 00:00:00 Completed [facility] Td 2022-05-30 00:00:00 Completed [facility] Td 2022-05-30 00:00:00 Completed [facility] Td 2022-05-30 00:00:00 Completed [facility] Td 2022-05-30 00:00:00 Completed [facility] TD, NOS Unknown Completed [facility] TD, NOS Unknown Completed [facility] TD, NOS Unknown Completed [facility] TD, NOS Unknown Completed [facility] Vital Signs Vital Name Observation Time Observation Value Comments S ource Systolic blood pressure 2024-05-06 15:43:00 145 mm[Hg] [facility] Diastolic blood pressure 2024-05-06 15:43:00 65 mm[Hg] [facility] Heart rate 2024-05-06 15:43:00 45 /min [facility] Body temperature 2024-05-06 15:43:00 36.44 Kayla [facility] Respiratory rate 2024-05-06 15:43:00 12 /min [facility] Oxygen saturation in Arterial blood by Pulse oximetry 2024-05-06 15:43:00 99 /min [facility] Body weight 2024-04-29 19:00:00 87.091 kg [facility] BMI 2024-04-29 19:00:00 26.78 kg/m2 [facility] Heart rate 2024-05-06 17:40:00 49 /min [facility] Oxygen saturation in Arterial blood by Pulse oximetry 2024-05-06 17:40:00 98 /min [facility] Systolic blood pressure 2024-05-06 17:35:00 129 mm[Hg] [facility] Diastolic blood pressure 2024-05-06 17:35:00 65 mm[Hg] [facility] Respiratory rate 2024-05-06 17:35:00 20 /min [facility] Body temperature 2024-05-06 15:43:00 36.44 Kayla [facility] Body weight 2024-04-29 19:00:00 87.091 kg [facility] BMI 2024-04-29 19:00:00 26.78 kg/m2 [facility] Systolic blood pressure 2024-04-22 18:10:00 130 mm[Hg] [facility] Diastolic blood pressure 2024-04-22 18:10:00 64 mm[Hg] [facility] Heart rate 2024-04-22 18:10:00 45 /min [facility] Respiratory rate 2024-04-22 18:10:00 18 /min [facility] Oxygen saturation in Arterial blood by Pulse oximetry 2024-04-22 18:10:00 95 /min [facility] Body temperature 2024-04-22 17:50:00 36.39 Kayla [facility] Body height 2024-04-22 15:38:00 180.3 cm [facility] Body weight 2024-04-22 15:38:00 86.183 kg [facility] BMI 2024-04-22 15:38:00 26.50 kg/m2 [facility] Systolic blood pressure 2024-04-22 15:46:00 154 mm[Hg] [facility] Diastolic blood pressure 2024-04-22 15:46:00 72 mm[Hg] [facility] Heart rate 2024-04-22 15:46:00 53 /min [facility] Body temperature 2024-04-22 15:46:00 36.33 Kayla [facility] Respiratory rate 2024-04-22 15:46:00 17 /min [facility] Oxygen saturation in Arterial blood by Pulse oximetry 2024-04-22 15:46:00 93 /min [facility] Body height 2024-04-22 15:38:00 180.3 cm [facility] Body weight 2024-04-22 15:38:00 86.183 kg [facility] BMI 2024-04-22 15:38:00 26.50 kg/m2 [facility] Systolic blood pressure 2022-06-27 18:18:00 172 mm[Hg] [facility] Diastolic blood pressure 2022-06-27 18:18:00 54 mm[Hg] [facility] Heart rate 2022-06-27 18:18:00 52 /min [facility] Oxygen saturation in Arterial blood by Pulse oximetry 2022-06-27 18:18:00 100 /min [facility] Body weight 2022-06-27 18:17:00 82.736 kg [facility] BMI 2022-06-27 18:17:00 25.44 kg/m2 [facility] Systolic blood pressure 2022-06-14 14:04:00 175 mm[Hg] [facility] Diastolic blood pressure 2022-06-14 14:04:00 57 mm[Hg] [facility] Heart rate 2022-06-14 14:04:00 67 /min [facility] Oxygen saturation in Arterial blood by Pulse oximetry 2022-06-14 14:04:00 98 /min [facility] Body weight 2022-06-14 13:56:00 81.647 kg [facility] BMI 2022-06-14 13:56:00 25.10 kg/m2 [facility] Procedures Procedure Date / Time Performed Performing Clinicia n Source 55053 - ME XCAPSL CTRC RMVL INSJ IO LENS PROSTH W/O ECP 2024-05-06 16:39:00 Osmel Luna [facility] [address] - ME XCAPSL CTRC RMVL INSJ IO LENS PROSTH W/O ECP 2024-04-22 17:09:00 Osmel Luna [facility] Encounters Start Date/Time End Date/Time Encounter Type Admission Type Attending [facility] Facility Care Department Encounter ID Source 2024-05-06 10:34:00 2024-05-06 12:50:00 Outpatient R OSMEL LUNA [facility] OPH [id number] [facility] 2024-05-06 11:17:00 2024-05-06 11:50:00 Surgery FitoOsmel [facility] [id number] 350.1.13.10 4.2.7.2.686 [id number] [facility] 2024-05-06 10:34:00 2024-05-06 10:34:00 Hospital Encounter Osmel Luna [facility] [id number] 350.1.13.10 4.2.7.2.686 [id number] [facility] 2024-04-22 10:35:00 2024-04-22 13:19:00 Outpatient R OSMEL LUNA [facility] OPH [id number] [facility] 2024-04-22 10:35:00 2024-04-22 13:19:00 Hospital Encounter FitoOsmel [facility] [id number] 350.1.13.10 4.2.7.2.686 [id number] [facility] 2024-04-22 11:11:00 2024-04-22 11:44:00 Surgery FitoOsmel [facility] 1.2.840.114 350.1.13.10 4.2.7.2.686 [id number] [facility] 2022-06-27 13:19:46 2022-06-27 23:59:00 Outpatient JAVED FERNANDEZ [facility] [id number] [facility] 2022-06-27 13:15:00 2022-06-27 13:41:36 Office Visit Osborn, Javed [facility] 1.2.840.114 350.1.13.10 4.2.7.2.686 [id number] [facility] 2022-06-14 09:00:00 2022-06-14 09:49:38 Outpatient R JAVED OSBORN [facility] [id number] [facility] 2022-06-14 09:00:00 2022-06-14 09:49:38 Office Visit Javed Osborn [facility] 1..840.114 350.1.13.10 4.2.7.2.686 [id number] [facility] 2022-06-12 15:15:00 2022-06-12 15:30:00 Office Visit Gunjan Sanchez [facility] 1..840.114 350.1.13.10 4.2.7.2.686 [id number] [facility] 2022-06-12 15:15:00 2022-06-12 15:15:00 Outpatient R LEATHA GUNJAN [facility] [id number] [facility] 2022-06-12 15:15:00 2022-06-12 15:15:00 Outpatient R LEATAH GUNJAN [facility] [id number] [facility] 2022-06-01 00:00:00 2022-06-01 00:00:00 Transition of Care Alexandrea Conte 1.2.840.114 350.1.13.10 4.2.7.2.686 [id number] [facility] 2022-05-30 22:20:00 2022-05-31 16:30:00 Outpatient X GUNJAN SANCHEZ [facility] [id number] [facility] 2022-05-30 22:20:00 2022-05-31 16:30:00 Emergency SanchezGunjan roberts [facility] 1.2840.114 350.1.13.10 4.2.7.2.686 [id number] [facility] 2022-05-30 17:52:00 2022-05-30 22:18:00 Emergency Ariela Mojica [facility] 1.2.840.114 350.1.13.10 4.2.7.2.686 [id number] [facility] 2022-05-30 17:52:00 2022-05-30 22:18:00 Emergency X Ariela MOJICA [facility] ERT [id number] [facility] 2022-05-30 17:52:00 2022-05-30 22:18:00 Emergency X Ariela MOJICA [facility] ERT [id number] [facility] History and Physical Notes Date/Time Note Provider Source 2024-05-06 11:04:16 H&P Update H&P was reviewed and the patient was examined and there was no change in the patient's condition. [facility] 2024-04-22 11:28:19 H&P Update H&P was reviewed and the patient was examined and there was no change in the patient's condition. [facility] Notes Date/Time Note Provider Source 2024-04-29 14:49:23 Images from the original note were not included. Your procedure is at [facility] on 05/06/24. The address is [address] [place] [address], [id number]. [facility] nursing staff will call you the workday [...] voiced no further questions at this time. [facility] 2024-04-01 11:18:27 Images from the original note were not included. Your procedure is at [facility] on 04/22/24. The address is [address] [place] [address], [id number]. [facility] nursing staff will call you the workday [...] voiced no further questions at this time. [facility]
[2024-06-16] MEDS ORDERED: dexAMETHasone 10 MG/ML VIAL ONE (16:46)
[2024-06-16] MEDS ORDERED: ONDANSETRON 4 MG/2 ML VIAL ONE (16:46)
[2024-06-16] MEDS ORDERED: KETOROLAC 30 MG/ML INJ ONE (16:46)
[2024-06-16] MEDS ORDERED: NA CHLORIDE 0.9% 1,000 ML ONE (16:47)
[2024-06-16] MEDS ORDERED: DIAZEPAM 5 MG TABLET ONE (16:47)
[2024-06-16 16:52] LABS: Absolute Basophils 0.1 K/uL (0-0.5); Absolute Eosinophils 0.5 K/uL (0-0.5); Absolute Lymphocytes (CBC) 1.8 K/uL (0.7-4.9); Absolute Monocytes 0.7 K/uL (0.1-1.3); Absolute Neutrophil 3.7 K/uL (1.8-8.0); Basophils % 0.9 % (0-1.3); Eosinophils % 7.3 % (0-4.4); Hematocrit 36.4 % (39.6-49.0); Hemoglobin 12.5 g/dL (13.6-17.9); Lymphocytes % 26.9 % (15.3-44.8); MCH 30.4 pg (27.0-35.0); MCHC 34.2 g/dL (32.0-36.0); MCV 88.9 fL (80-100); MPV 8.1 fL (7.6-11.3); Monocytes % 10.5 % (3.3-12.3); Neutrophils % 54.4 % (41.7-73.7); Platelets 250 thou/uL (152-406)
[2024-06-16 16:54] LABS: PT Prothrombin Time 12.4 SECONDS (9.4-12.5); Protime INR 1.11
[2024-06-16] MEDS ORDERED: MORPHINE 4 MG/ML SYR ONE (16:55)
[2024-06-16 17:26] LABS: Albumin 3.3 g/dL (3.4-5.0); Albumin/Globulin Ratio 0.7 (1.1-1.8); Anion Gap 7.7 mEq/L (5.0-15.0); Bilirubin Total 0.3 mg/dL (0.2-1.0); Potassium 3.7 mEq/L (3.5-5.1); Protein, Total 8.3 g/dL (6.4-8.2)
--- NOTE | 2024-06-16 17:39 | RAD REPORT ---
EXAM DESCRIPTION: CT - CTHCSPWOC - 06/16/2024 5:32 pm CLINICAL HISTORY: Trauma, head and neck injury. HEADACHE COMPARISON: Head C Spine Mpr Wo Con dated 05/25/2024; Thoracic Spine W/o Cont dated 05/25/2024 TECHNIQUE: Axial 5 mm thick images of the head were obtained. Axial 2 mm thick images of the cervical spine were obtained with sagittal and coronal reconstruction images generated and reviewed. All CT scans are performed using dose optimization technique as appropriate and may include automated exposure control or mA/KV adjustment according to patient size. FINDINGS: CT HEAD WITHOUT CONTRAST: No acute hemorrhage, hydrocephalus or extra-axial collection is identified.No areas of brain edema or midline shift. The paranasal sinuses and mastoids are clear.The calvarium is intact. CT CERVICAL SPINE WITHOUT CONTRAST: No fracture or subluxation.Mild lower cervical degenerative spondylosis.No prevertebral soft tissues swelling is identified. Vertebral atherosclerosis. IMPRESSION: No acute intracranial or cervical spine findings.
--- NOTE | 2024-06-16 17:42 | RAD REPORT ---
EXAM DESCRIPTION: CT - Chest Abd Pelvis Wo Con - 06/16/2024 5:34 pm CLINICAL HISTORY: Chest and abdomen pain. PAIN COMPARISON: No comparisons TECHNIQUE: A limited noncontrast study was performed. All CT scans are performed using dose optimization technique as appropriate and may include automated exposure control or mA/KV adjustment according to patient size. FINDINGS: The lungs are clear.Small left pleural effusion.Small hiatal hernia.No intrathoracic adeno jb. The liver, spleen, pancreas, adrenal glands and kidneys are within normal limits. No bowel obstruction, free air, free fluid or abscess. Nonvisualized appendix. Prominent retained sto ol throughout the colon. Sigmoid diverticulosis. No pathologic lymphadenopathy in the abdomen or pelv is. Mild lumbar degenerative changes. IMPRESSION: Small left pleural effusion. Significant fecal retention throughout the colon. Sigmoid diverticulosis.
--- NOTE | 2024-06-16 17:46 | ER ---
Nurse's Notes [facility] Name: Edward Odom Age: 74 yrs Sex: Male : 1950 Arrival Date: 06/16/2024 Time: 15:27 Bed 10 Private MD: Diagnosis: Fall on same level, unspecified;Unspecified injury of head, initial encounter;Strain of muscle, fascia and tendon at neck level, initial encounter;Contusion of back wall of thorax;Pleural effusion, not elsewhere classified;Constipation Presentation: 06/16 16:13 Chief complaint: Patient states: Had a fall 2 weeks ago and continues to have neck cm10 pain. Today at 1430 pt began having a headache. Coronavirus screen: Client denies travel out of the [place] in the last 14 days. At this time, the client does not indicate any symptoms associated with coronavirus-19. Ebola Screen: Patient denies travel to an Ebola-affected area in the 21 days before illness onset. No symptoms or risks identified at this time. Initial Sepsis Screen: Does the patient meet any 2 criteria? No. Patient's initial sepsis screen is negative. Does the patient have a suspected source of infection? No. Patient's initial sepsis screen is negative. Risk Assessment: Do you want to hurt yourself or someone else? Patient reports no desire to harm self or others. Onset of symptoms was June 16, 2024. 16:13 Method Of Arrival: Wheelchair cm10 16:13 Acuity: TANI 3 cm10 Triage Assessment: 16:15 General: Appears in no apparent distress. uncomfortable, Behavior is calm, cooperative. cm10 Neuro: No deficits noted. Level of Consciousness is awake, alert, obeys commands, Oriented to person, place, time, situation, Appropriate for age. Historical: - Allergies: 16:14 No Known Allergies; cm10 - Home Meds: 16:14 Omeprazole Oral [Active]; cm10 16:15 aspirin 81 mg Oral tablet,chewable [Active]; cm10 - PMHx: 16:14 Gastric Reflux; Vertigo; cm10 - PSHx: 16:14 Aortic valve replacement; cataract surgery; cm10 16:15 Coronary artery bypass graft; cm10 - Immunization history:: Adult Immunizations up to date. - Infectious Disease History:: Denies. - Social history:: Smoking status: unknown. Screenin:45 [facility] ED Fall Risk Assessment (Adult) History of falling in the last 3 months, iw including since admission Yes- single mechanical fall (1 pt) Confusion or Disorientation No (0 pts) Intoxicated or Sedated No (0 pts) Impaired Gait No (0 pts) Mobility Assist Device Used No (0 pt) Altered Elimination No (0 pt) Score/Fall Risk Level 0 - 2 = Low Risk Oriented to surroundings, Maintained a safe environment. Abuse screen: Denies threats or abuse. Denies injuries from another. Nutritional screening: No deficits noted. Tuberculosis screening: No symptoms or risk factors identified. Assessment: 16:45 General: Appears in no apparent distress. uncomfortable, Behavior is cooperative, iw anxious. Pain: Complains of pain in thoracic area and right base of the skull and right occipital area. Neuro: Level of Consciousness is awake, alert, obeys commands, Oriented to person, place, time, situation. Cardiovascular: Patient's skin is warm and dry. Respiratory: Respiratory effort is even, unlabored, Respiratory pattern is regular, symmetrical. Derm: Skin is intact, is healthy with good turgor. Musculoskeletal: Range of motion: limited in neck Reports pain in head, neck, back of head, back of neck and posterior chest. Vital Signs: 16:13 BP 139 / 73; Pulse 56; Resp 16; Temp 97.3; Pulse Ox 99% on R/A; Weight 86.18 kg (R); cm10 Height 5 ft. 11 in. (R); Pain 10/10; 17:05 BP 134 / 68; Pulse 62; Resp 15; Pulse Ox 99% ; me1 18:30 BP 130 / 79; Pulse 60; Resp 16; Temp 98.4; Pulse Ox 98% ; me1 16:13 Body Mass Index 26.50 (86.18 kg, 180.34 cm) cm10 16:13 Pain Scale: Adult cm10 Verdigre Coma Score: 17:10 Eye Response: spontaneous(4). Motor Response: obeys commands(6). Verbal Response: kimo oriented(5). Total: 15. ED Course: 15:29 Patient arrived in ED. ra3 15:33 Germain Verde MD is Attending Physician. kimo 16:14 Triage completed. cm10 16:16 Arm band placed on Patient placed in an exam room, on a stretcher. cm10 16:40 Radiology exam delayed due to family and patient wants pain meds before CT scan. az 16:41 Marnie Sow, RN is Primary Nurse. iw 16:43 Initial lab(s) drawn, by me, sent to lab. Inserted saline lock: 20 gauge in right iw antecubital area, using aseptic technique. Blood collected. Flushed with 10 mL NS. 17:00 Provided Education on: pain meds, CT scan . iw 17:33 CT Head C Spine In Process Unspecified. EDMS 17:33 CT Chest Abdomen Pelvis W/O Contrast In Process Unspecified. EDMS 17:45 Isaias Ordonez MD is Referral Physician. kimo 17:46 Patient has correct armband on for positive identification. Client placed on continuous iw cardiac and pulse oximetry monitoring. NIBP monitoring applied. 18:05 INCENTIVE SPIROMETRY Sent. me1 18:58 No provider procedures requiring assistance completed. IV discontinued, intact, me1 bleeding controlled, No redness/swelling at site. Pressure dressing applied. Administered Medications: 17:01 Drug: NS 0.9% IV 1000 ml IV at 1 bolus Per protocol; 1000 mL bolus Route: IV; Rate: 1 iw bolus; Site: right antecubital; 18:59 Follow up: Response: No adverse reaction; IV Status: Completed infusion; IV Intake: me1 1000ml 17:01 Drug: Diazepam PO 10 mg PO once Route: PO; iw 17:48 Follow up: Response: No adverse reaction; Anxiety decreased me1 17:01 Drug: Decadron - Dexamethasone IVP 10 mg IVP once Route: IVP; Site: right antecubital; iw 17:48 Follow up: Response: No adverse reaction me1 17:02 Not Given (Patient Refused): [id number] mg IVP once iw 17:02 Drug: Ondansetron IVP 4 mg IVP once; over 2 minutes Route: IVP; Site: right antecubital;iw 17:48 Follow up: Response: No adverse reaction; Nausea is decreased me1 17:02 Not Given (Other Intervention Used): fentanyl (pf)50 mcg IVP once iw 17:02 Drug: morphine IVP or IV 4 mg IVP once over 4 mins Route: IVP; Infused Over: 4 mins; iw Site: right antecubital; 17:48 Follow up: Response: No adverse reaction; Pain is decreased me1 17:55 Not Given (Patient Refused): dulcolaxsuppository 10 mg VA once me1 17:55 Not Given (Patient Refused): [id number] grams 45 ml PO once me1 Medication: 18:58 VIS not applicable for this client. me1 Intake: 18:59 IV: 1000ml; Total: 1000ml. me1 Outcome: 17:45 Discharge ordered by . kimo 18:58 Discharged to home ambulatory, with family, nj1 18:58 Condition: stable 18:58 Discharge instructions given to patient, family, Instructed on discharge instructions, follow up and referral plans. medication usage, Demonstrated understanding of instructions, follow-up care, medications, Prescriptions given X X6 18:59 Patient left the ED. me1 Signatures: Dispatcher [employer] EDMS Germain Verde MD MD cha Williams, Irene RN AUDELIA iw Afia Miller Clarissa, RN RN cm10 Felicitas Reed RN RN nj1 Ladonna Mosquera ra3 Corrections: (The following items were deleted from the chart) 18:44 16:13 Chief complaint: Patient states: Had a fall 2 weeks ago and continues to have me1 neck pain. Today at 1430 pt began having a headache. cm10
--- NOTE | 2024-06-16 17:46 | EDPHYS ---
Physician Documentation [facility] Name: Edward Odom Age: 74 yrs Sex: Male : 1950 Arrival Date: 06/16/2024 Time: 15:27 Bed 10 Private MD: ED Physician Germain Verde HPI: 06/16 17:07 This 74 yrs old Male presents to ER via Wheelchair with complaints of Fall kimo Injury, Head Injury Without LOC-Adult. 17:07 Details of fall: The patient fell from an upright position, while walking. Onset: The kimo symptoms/episode began/occurred 2 week(s) ago. Associated injuries: The patient sustained injury to the head, neck injury, upper back injury. Severity of symptoms: At their worst the symptoms were mild, moderate, in the emergency department the symptoms are unchanged. The patient has not experienced similar symptoms in the past. Historical: - Allergies: 16:14 No Known Allergies; cm10 - Home Meds: 16:14 Omeprazole Oral [Active]; cm10 16:15 aspirin 81 mg Oral tablet,chewable [Active]; cm10 - PMHx: 16:14 Gastric Reflux; Vertigo; cm10 - PSHx: 16:14 Aortic valve replacement; cataract surgery; cm10 16:15 Coronary artery bypass graft; cm10 - Immunization history:: Adult Immunizations up to date. - Infectious Disease History:: Denies. - Social history:: Smoking status: unknown. ROS: 17:08 Constitutional: Negative for fever, chills, and weight loss, Eyes: Negative for injury, kimo pain, redness, and discharge, ENT: Negative for injury, pain, and discharge, Cardiovascular: Negative for chest pain, palpitations, and edema, Respiratory: Negative for shortness of breath, cough, wheezing, and pleuritic chest pain, Abdomen/GI: Negative for abdominal pain, nausea, vomiting, diarrhea, and constipation, : Negative for injury, bleeding, discharge, and swelling, MS/Extremity: Negative for injury and deformity, Skin: Negative for injury, rash, and discoloration, Psych: Negative for depression, anxiety, suicide ideation, homicidal ideation, and hallucinations, Allergy/Immunology: Negative for hives, rash, and allergies, Endocrine: Negative for neck swelling, polydipsia, polyuria, polyphagia, and marked weight changes, Hematologic/Lymphatic: Negative for swollen nodes, abnormal bleeding, and unusual bruising, 17:08 Neck: Positive for pain at rest, 17:08 Back: Positive for injury or acute deformity, decreased range of motion, pain at rest, 17:08 Neuro: Positive for headache, Exam: 17:08 Constitutional: This is a well developed, well nourished patient who is awake, alert, kimo and in no acute distress. Eyes: Pupils equal round and reactive to light, extra-ocular motions intact. Lids and lashes normal. Conjunctiva and sclera are non-icteric and not injected. Cornea within normal limits. Periorbital areas with no swelling, redness, or edema. ENT: Nares patent. No nasal discharge, no septal abnormalities noted. Tympanic membranes are normal and external auditory canals are clear. Oropharynx with no redness, swelling, or masses, exudates, or evidence of obstruction, uvula midline. Mucous membranes moist. Chest/axilla: Normal chest wall appearance and motion. Nontender with no deformity. No lesions are appreciated. Cardiovascular: Regular rate and rhythm with a normal S1 and S2. No gallops, murmurs, or rubs. Normal PMI, no JVD. No pulse deficits. Respiratory: Lungs have equal breath sounds bilaterally, clear to auscultation and percussion. No rales, rhonchi or wheezes noted. No increased work of breathing, no retractions or nasal flaring. Abdomen/GI: Soft, non-tender, with normal bowel sounds. No distension or tympany. No guarding or rebound. No evidence of tenderness throughout. Male : Normal genitalia with no discharge or lesions. Skin: Warm, dry with normal turgor. Normal color with no rashes, no lesions, and no evidence of cellulitis. MS/ Extremity: Pulses equal, no cyanosis. Neurovascular intact. Full, normal range of motion. Neuro: Awake and alert, GCS 15, oriented to person, place, time, and situation. Cranial nerves II-XII grossly intact. Motor strength 5/5 in all extremities. Sensory grossly intact. Cerebellar exam normal. Normal gait. Psych: Awake, alert, with orientation to person, place and time. Behavior, mood, and affect are within normal limits. 17:08 Head/face: Noted is tenderness, that is mild, of the left side of the back of head, left occipital area, left base of the skull, right side of the back of head, right occipital area and right base of the skull, 17:08 Neck: ROM/movement: pain, that is mild, that is moderate, with extension, with flexion, Lymph nodes: no appreciated lymphadenopathy, 17:08 Back: pain, that is mild, that is moderate, of the thoracic area, Vital Signs: 16:13 BP 139 / 73; Pulse 56; Resp 16; Temp 97.3; Pulse Ox 99% on R/A; Weight 86.18 kg (R); cm10 Height 5 ft. 11 in. (R); Pain 10/10; 17:05 BP 134 / 68; Pulse 62; Resp 15; Pulse Ox 99% ; me1 18:30 BP 130 / 79; Pulse 60; Resp 16; Temp 98.4; Pulse Ox 98% ; me1 16:13 Body Mass Index 26.50 (86.18 kg, 180.34 cm) cm10 16:13 Pain Scale: Adult cm10 Delisa Coma Score: 17:10 Eye Response: spontaneous(4). Motor Response: obeys commands(6). Verbal Response: kimo oriented(5). Total: 15. MDM: 15:33 Patient medically screened. kimo 17:10 Differential diagnosis: Contusion of Hematoma on head, Intracranial bleed- Concussion kimo without LOC. cerebral contusion, Blunt Chest Trauma Chest Wall Contusion. Data reviewed: vital signs, nurses notes. I considered the following discharge prescriptions or medication management in the emergency department Medications were administered in the Emergency Department. See MAR. Test considered but Not performed: MRI: NO MRI HEAD AND C SPINE. 06/16 16:25 Order name: CBC with Diff; Complete Time: 17:36 [facility] 06/16 16:25 Order name: Comprehensive Metabolic Panel; Complete Time: 17:36 [facility] 06/16 16:25 Order name: PT-INR; Complete Time: 17:36 [facility] 06/16 15:34 Order name: CT Head C Spine; Complete Time: 17:44 [facility] 06/16 16:25 Order name: CT Chest Abdomen Pelvis W/O Contrast; Complete Time: 17:44 [facility] 06/16 17:44 Order name: INCENTIVE SPIROMETRY kimo Administered Medications: 17:01 Drug: NS 0.9% IV 1000 ml IV at 1 bolus Per protocol; 1000 mL bolus Route: IV; Rate: 1 iw bolus; Site: right antecubital; 18:59 Follow up: Response: No adverse reaction; IV Status: Completed infusion; IV Intake: me1 1000ml 17:01 Drug: Diazepam PO 10 mg PO once Route: PO; iw 17:48 Follow up: Response: No adverse reaction; Anxiety decreased me1 17:01 Drug: Decadron - Dexamethasone IVP 10 mg IVP once Route: IVP; Site: right antecubital; iw 17:48 Follow up: Response: No adverse reaction me1 17:02 Not Given (Patient Refused): [id number] mg IVP once iw 17:02 Drug: Ondansetron IVP 4 mg IVP once; over 2 minutes Route: IVP; Site: right antecubital;iw 17:48 Follow up: Response: No adverse reaction; Nausea is decreased me1 17:02 Not Given (Other Intervention Used): fentanyl (pf)50 mcg IVP once iw 17:02 Drug: morphine IVP or IV 4 mg IVP once over 4 mins Route: IVP; Infused Over: 4 mins; iw Site: right antecubital; 17:48 Follow up: Response: No adverse reaction; Pain is decreased me1 17:55 Not Given (Patient Refused): dulcolaxsuppository 10 mg [place] once me1 17:55 Not Given (Patient Refused): [id number] grams 45 ml PO once me1 Disposition Summary: 06/16/24 17:45 Discharge Ordered Notes: Location: Home kimo Problem: new kimo Symptoms: have improved kimo Condition: Stable kimo Diagnosis - Fall on same level, unspecified kimo - Unspecified injury of head, initial encounter kimo - Strain of muscle, fascia and tendon at neck level, initial encounter kimo - Contusion of back wall of thorax kimo - Pleural effusion, not elsewhere classified kimo - Constipation kimo Followup: kimo - With: Private Physician - When: 2 - 3 days - Reason: Recheck today's complaints, Continuance of care, Re-evaluation by your physician Followup: kimo - With: Isaias Ordonez MD - When: 2 - 3 days - Reason: Recheck today's complaints, Re-evaluation by your physician Discharge Instructions: - Discharge Summary Sheet kimo - Constipation, Adult kimo - Head Injury, Adult kimo - Muscle Strain kimo - Pleural Effusion kimo - How to Use an Incentive Spirometer kimo - Constipation, Adult, [id number] [facility] - Muscle Strain, Knzy-ss-Mmut [facility] - Head Injury, Adult, [id number] [facility] - Incentive Spirometer Record [facility] Forms: - Medication Reconciliation Form [facility] - Antibiotic Education [facility] - Prescription Opioid Use [facility] - Patient Portal Instructions [facility] - Leadership Thank You Letter [facility] Prescriptions: - acetaminophen-codeine 300-30 mg Oral tablet - take 1 tablet ORAL route every 4-6 hours as needed for pain; 20 tablet; [facility] Refills: 0, Product Selection Permitted - dexamethasone 4 mg Oral tablet - take 4 tablet ORAL route once daily for 4 days; 4 tablet; Refills: 0, Product kimo Selection Permitted - Dulcolax (bisacodyl) 10 mg Rectal suppository - insert 1 suppository RECTAL route 2 times per day for 5 days; 10 suppository; [facility] Refills: 0, Product Selection Permitted - Valium 2 mg Oral Tablet - take 1 tablet ORAL route every 8 hours As needed; 20 tablet; Refills: 0, [facility] Product Selection Permitted - Lactulose 10 gram/15 mL Oral Solution - take 30 milliliters ORAL route once daily; 300 milliliter; Refills: 0, Product kimo Selection Permitted - Motrin IB 200 mg Oral tablet - take 1 tablet ORAL route every 6 hours As needed as needed with food; 30 kimo tablet; Refills: 0, Product Selection Permitted Signatures: Dispatcher [employer] Germain Pedraza MD MD cha Williams, Irene, RN AUDELIA Shameka Cyr RN RN cm10 Felicitas Reed RN me1
[2024-06-16] MEDS ORDERED: BISACODYL 10 MG RECTAL SUPP ONE (17:50)
[2024-06-16] MEDS ORDERED: LACTULOSE 20 GM/30 ML UCUP ONE (17:51)
[2024-06-16 19:35] VITALS: BP 130/79; TEMP 98.4; O2SAT 98
== END 2024-06-16 18:59 | disposition home or self-care (01) ==
LOC: ER 15:27
DX: S09.90XA Unspecified injury of head, initial encounter (principal); S16.1XXA Strain of muscle, fascia and tendon at neck level, initial encounter; S20.229A Contusion of unspecified back wall of thorax, initial encounter; J90 Pleural effusion, not elsewhere classified; K59.00 Constipation, unspecified; W18.30XA Fall on same level, unspecified, initial encounter; Z95.1 Presence of aortocoronary bypass graft; Z79.82 Long term (current) use of aspirin; Z95.2 Presence of prosthetic heart valve
CPT/HCPCS: 96361; 85025; 36415; 85610; 80053; 70450; 71250; 72125; 74176; 96375; 96374; 99284; J1100; J2405; J7030